=== PATIENT | female | born 2000 | race African-American/Black ===

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

== ENCOUNTER 2023-09-27 14:20 | Emergency (ER) | payer MEDICAID ==
[~2023-09-27] VITALS: Ht 157.5 cm; Wt 72.1 kg
[~2023-09-27 14:20] MED LIST: ACET500T58 PO; CLIN1CAP70 PO; PRED20TA2 PO
[2023-09-27 15:25] VITALS: BP 108/71; PULSE 64; RESP 17; TEMP 97.6; O2SAT 99
[2023-09-27] MEDS ORDERED: CEPH500C PO (15:56)
[2023-09-27] MEDS ORDERED: MUPI2OIN2 TOP (15:56)
== END 2023-09-27 16:00 | disposition home or self-care (01) ==
LOC: ER 14:20
DX: L08.89 Other specified local infections of the skin and subcutaneous tissue (principal); J45.909 Unspecified asthma, uncomplicated; Z79.899 Other long term (current) drug therapy; Z91.010 Allergy to peanuts; Z91.018 Allergy to other foods

== ENCOUNTER 2025-03-18 17:31 | Emergency (ER) | payer MEDICAID ==
[~2025-03-18] VITALS: Ht 167.6 cm; Wt 84.5 kg
[~2025-03-18 17:31] MED LIST changes: +CEPH500C PO; +MUPI2OIN2 TOP
[2025-03-18 17:40] VITALS: BP 113/73; PULSE 79; RESP 16; TEMP 98.2; O2SAT 100
--- NOTE | 2025-03-18 18:21 | ED.PDOC ---
Eye-HPI HPI Comments 25 year old female presents to ER with complaints of right sided earache pain x 1 day. Patient reports she started experiencing right sided earache pain last night. She rates her current pain a 7/10 to right ear and notes she attempted to flush her right ear out with water without relief. Patient also reports she is currently 36 weeks and has been following up with her OBGYN as directed, denying any current related symptoms. Denies fever, headache, dizziness, ear drainage, n/v or any further symptoms/complaints Chief Complaint: Earache Time Seen by MD: 18:10 Primary Care Provider: UNKNOWN Reviewed Notes: Nurses Notes, Medications, Allergies Allergies: Coded Allergies: [place] (Unverified Allergy, Unknown, 09/14/14) Peanut-containing Drug Products (Unverified Allergy, Unknown, 09/14/14) Wheat Bran (Unverified Allergy, Unknown, 09/14/14) Home Meds Active Scripts Ciprofloxacin-Dexamethasone (Ciprofloxacin/Dexamethaso 0.3-0.1 %) 1 Kelly Kelly, 4 DROP RIGHT EAR BID for 7 Days, #1 BOTTLE 0 Refills Prov:TRACEY KUMAR 03/18/25 Amoxicillin & Pot Clavulanate (Amoxicillin/Potassium Cla) 875 Mg Tab, 1 TAB PO BID for 10 Days, #20 TAB 0 Refills Prov:TRACEY KUMAR 03/18/25 Mupirocin (Pseudomonas Fluores (Mupirocin) 2 % Oin, 2 % TOP TID for 7 Days, #22 GRAMS Prov:CHRISTOPHE JOYNERP 09/27/23 Cephalexin Monohydrate (Cephalexin) 500 Mg Cap, 1 CAP PO QID for 7 Days, #28 CAP Prov:CHRISTOPHE JOYNER 09/27/23 Prednisone (Prednisone) 20 Mg Tab, 20 MG PO BID for 5 Days, #10 MG 0 Refills Prov:TRACEY KUMAR 09/20/21 Acetaminophen (Acetaminophen) 500 Mg Tab, 500 MG PO QIDP, #30 TAB 0 Refills Prov:TRACEY KUMAR 09/20/21 Clindamycin Hcl (Clindamycin Hcl) 300 Mg Cap, 1 CAP PO TID for 7 Days, #21 CAP 0 Refills Prov:TRACEY KUMAR 09/20/21 Information Source: Patient Mode of Arrival: Ambulatory Past Medical History PAST MEDICAL HISTORY: Asthma Surgical History: Denies all surgeries 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 FINISHING History Family History Family History: Unknown Social History Smoker: Non-Smoker Alcohol: Denies ETOH Use Drugs: Denies Drug Use Lives In: Home Constitutional: denies: chills, diaphoresis, fatigue, fever, malaise, sweats, weakness, others EENTM: reports: others (As stated in HPI) Respiratory: denies: cough, hemoptysis, orthopnea, SOB at rest, shortness of breath, SOB with excertion, stridor, wheezing, others Cardiovascular: denies: chest pain, dizzy spells, diaphoresis, Dyspnea on exertion, edema, irregular heart beat, left arm pain, lightheadedness, palpitations, PND, syncope, others Gastrointestinal: denies: abdomen distended, abdominal pain, blood streaked bowels, constipated, diarrhea, dysphagia, difficulty swallowing, hematemesis, melena, nausea, poor appetite, poor fluid intake, rectal bleeding, rectal pain, vomiting, others Genitourinary: denies: abnormal vagina bleeding, burning, dyspareunia, dysuria, flank pain, frequency, hematuria, incontinence, pain, , vagina discharge, urgency, others Neurological: denies: dizziness, fainting, headache, left sided numbness, left sided weakness, numbness, paresthesia, pre-existing deficit, right sided numbness, right sided weakness, seizure, speech problems, tingling, tremors, weakness, others Musculoskeletal: denies: back pain, gout, joint pain, joint swelling, muscle pain, muscle stiffness, neck pain, others Integumetry: denies: bruises, change in color, change in hair/nails, dryness, laceration, lesions, lumps, rash, wounds, others Allergic/Immunocompromised: denies: Difficulty Healing, Frequent Infections, Hives, Itching, others Hematologic/Lymphatic: denies: anemia, blood clots, easy bleeding, easy bruising, swollen glands, others Endocrine: denies: excessive hunger, excessive sweating, excessive thirst, excessive urination, flushing, intolerance to cold, intolerance to heat, unexplained weight gain, unexplained weight loss, others Psychiatric: denies: anxiety, bipolar disorder, depression, hopeless, panic disorder, schizophrenia, sleepless, suicidal, others Physical Exam General Appearance: No Apparent Distress HEENT: PERRL/EOMI, Pharynx Normal, Other (Mild swelling/erythema and minimal yellow drainage noted to right middle ear canal. Remainder bilateral ear exam- unremarkable) Neck: Full Range of Motion, Non-Tender, Normal Respiratory: Chest Non-Tender, Lungs Clear, No Accessory Muscle Use, No Respiratory Distress, Normal Breath Sounds Cardiovascular: No Murmur, No Gallop, Regular Rate/Rhythm Breast Exam: Deferred Gastrointestinal: NOT DONE Genitalia: Deferred Pelvic: Deferred Rectal: Deferred Extremities: Normal capillary refill, Normal range of motion Neurologic: Alert, database development project manager II-XII nml as Tested, No Motor Deficits, Normal Affect, Normal Mood, No Sensory Deficits Cerebellar Function: Normal Reflexes: Normal Skin: Dry, Normal Color, Warm Lymphatic: No Adenopathy Was a procedure done? Was a procedure done?: No Sedation Sedation?: No EENT DIFF Eye: N/A Ear: Abrasion, Cerumen Impaction, Foreign Body, Otitis Media, Perforation X-Ray, Labs, Meds, VS Vital Signs Date Time Temp Pulse Resp B/P (MAP) Pulse Ox O2 Delivery O2 Flow Rate FiO2 03/18/25 17:40 98.2 79 16 113/73 100 98.2 Advised on importance of not flushing right ear out with water and to keep ear canal dry Advised to follow up with PCP in 1-2 days Patient verbalized understanding and agreeable with current plan of care Advised to return to ER immediately if symptoms worsen Time of 1ST Reevaluation: 18:04 Reevaluation 1ST: N/A Patient Education/Counseling: Diagnosis, Treatment, Prognosis, Need For Follow Up Family Education/Counseling: No Family Present SEPSIS Sepsis Screen Date sepsis recognized/suspect: Mar 18, 2025 Time Sepsis recognized/suspect: 1741 Recent Procedure: No On Antibiotic Therapy: No Respiratory Rate >20: No Heart Rate >90: No Temp<36 C (96.8 F) or >38.3 C: No SBP <90 or MAP <65 mmHG: No New Acute Mental Status Change: No Is the patient on CPAP, BIPAP,: No Vital Signs Date Time Temp Pulse Resp B/P (MAP) Pulse Ox O2 Delivery O2 Flow Rate FiO2 03/18/25 17:40 98.2 79 16 113/73 100 98.2 Departure 1 Departure Time of Disposition: 18:20 Impression: Primary Impression: Otitis externa of right ear Qualified Codes: H60.501 - Unspecified acute noninfective otitis externa, right ear Additional Impression: Third trimester Disposition: HOME / SELF CARE / HOMELESS Condition: Stable e-Prescriptions Ciprofloxacin-Dexamethasone (Ciprofloxacin/Dexamethaso 0.3-0.1 %) 1 Kelly Kelly 4 DROP RIGHT EAR BID for 7 Days, #1 BOTTLE 0 Refills Prov: TRACEY KUMAR 03/18/25 Amoxicillin & Pot Clavulanate (Amoxicillin/Potassium Cla) 875 Mg Tab 1 TAB PO BID for 10 Days, #20 TAB 0 Refills Prov: TRACEY KUMAR 03/18/25 Discharged With: Self Critical Care Note Critical Care Time?: No Stability Stability form required: No Heart Score Heart Score: Heart Score Response (Comments) Value History N/A 0 EKG N/A 0 Age N/A 0 Risk Factors N/A 0 Troponin N/A 0 Total 0 TRACEY KUMAR Mar 18, 2025 18:21
[2025-03-18] MEDS ORDERED: AMOX875T4 PO (18:26)
[2025-03-18] MEDS ORDERED: CIPR1SUS8 RIGHT EAR (18:26)
== END 2025-03-18 18:29 | disposition home or self-care (01) ==
LOC: ER 17:31
DX: O99.891 Other specified diseases and conditions complicating pregnancy (principal); H60.91 Unspecified otitis externa, right ear; J45.909 Unspecified asthma, uncomplicated; Z91.010 Allergy to peanuts; Z3A.36 36 weeks gestation of pregnancy